=== PATIENT | male | born 1980 | race African-American/Black ===

== ENCOUNTER 2018-12-19 10:12 | Emergency (ER) | payer OTHER ==
--- NOTE | 2018-12-19 10:42 | ER Document Report ---
ED Medical Screen (RME) - General Chief Complaint: High Blood Pressure Stated Complaint: BLOOD PRESSURE ISSUE Time Seen by Provider: 12/19/18 10:36 Primary Care Provider: ARNEL ETIENNE MD [Primary Care Provider] - Follow up as needed TRAVEL OUTSIDE OF THE [place] IN LAST 30 DAYS: No - HPI Notes: 12/19/18 10:40 Patient is a 38-year-old male with a history of IV drug abuse with last use 2 to 3 days ago who presents complaining of dry cough, left-sided chest pain/tightness, palpitations, intermittent dizziness for the past 3 weeks. Patient states that he had some vomiting past yesterday and the day before but nothing today. Denies significant cardiopulmonary medical history otherwise. Denies drug allergies. Denies MILLER, fever, neck pain, URI, SOB, Abd pain, dysuria, back pain, or rash. I have treated and performed a rapid initial assessment of this patient. A comprehensive ED assessment and evaluation of the patient, analysis of test results and completion of medical decision making process will be conducted by additional ED providers. PHYSICAL EXAMINATION: GENERAL: Well-appearing, well-nourished and in no acute distress. A&Ox4. Answers questions appropriately. LUNGS: Breath sounds clear to auscultation bilaterally and equal. No wheezes rales or rhonchi. HEART: Regular rate and rhythm without murmurs, rubs, gallops. Extremities: No cyanosis, clubbing, or edema b/l. No lower extremity asymmetry. Radha negative bilaterally. NEUROLOGICAL: Normal speech, normal gait. PSYCH: Normal mood, normal affect. - Related Data Allergies/Adverse Reactions: No Known Allergies Allergy (Verified 12/19/18 10:14) Past Medical History - Past Medical History Cardiac Medical History: Reports: Hx Hypertension Pulmonary Medical History: Reports: Hx Bronchitis Psychiatric Medical History: Reports: Hx Depression Past Surgical History: Reports: Hx Herniorrhaphy, Hx Orthopedic Surgery - right hand tendon repair - Immunizations Hx Diphtheria, Pertussis, Tetanus Vaccination: No Physical Exam - Vital signs Vitals: Temp Pulse Resp BP Pulse Ox 98.4 F 106 H 18 167/104 H 97 12/19/18 10:18 12/19/18 10:18 12/19/18 10:18 12/19/18 10:18 12/19/18 10:18 Course - Vital Signs Vital signs: Temp Pulse Resp BP Pulse Ox 98.4 F 106 H 18 167/104 H 97 12/19/18 10:18 12/19/18 10:18 12/19/18 10:18 12/19/18 10:18 12/19/18 10:18 Doctor's Discharge - Discharge Referrals: ARNEL ETIENNE MD [Primary Care Provider] - Follow up as needed
[2018-12-19 11:10] LABS: ABSOLUTE LYMPHOCYTES (AUTO) 1.4 10^3/uL (0.5-4.7); ABSOLUTE NEUT (AUTO) 6.6 10^3/uL (1.7-8.2); BASOPHILS % (AUTO) 0.4 % (0-2); EOSINOPHILS % (AUTO) 0.5 % (0-6); HEMATOCRIT 45.1 % (37.9-51.0); HEMOGLOBIN 15.9 g/dL (13.5-17.0); LYMPHOCYTES % (AUTO) 15.7 % (13-45); MEAN CORPUSCULAR HEMOGLOBIN 28.6 pg (27.0-33.4); MEAN CORPUSCULAR HGB CONC 35.2 g/dL (32.0-36.0); MEAN CORPUSCULAR VOLUME 81 fl (80-97); MONOCYTES % (AUTO) 11.3 % (3-13); PLATELET COUNT 353 10^3/uL (150-450); RED BLOOD COUNT 5.56 10^6/uL (4.35-5.55); RED CELL DISTRIBUTION WIDTH 13.1 % (11.5-14.0); SEGMENTED NEUTROPHILS % (AUTO) 72.1 % (42-78); TOTAL CELLS COUNTED % (AUTO) 100 %; WHITE BLOOD COUNT 9.1 10^3/uL (4.0-10.5)
[2018-12-19 11:31] LABS: URINE AMPHETAMINES SCREEN NEGATIVE; URINE BARBITURATES SCREEN NEGATIVE; URINE BENZODIAZEPINES SCREEN NEGATIVE; URINE COCAINE SCREEN UNCONFIRMED POSITIVE; URINE MARIJUANA (THC) SCREEN UNCONFIRMED POSITIVE; URINE METHADONE SCREEN NEGATIVE; URINE PHENCYCLIDINE SCREEN NEGATIVE
[2018-12-19 11:34] LABS: ALANINE AMINOTRANSFERASE 32 U/L (21-72); ALBUMIN 4.2 g/dL (3.5-5.0); ALKALINE PHOSPHATASE 83 U/L (38-126); ANION GAP 12 (5-19); ASPARTATE AMINO TRANSFERASE 32 U/L (17-59); BILIRUBIN,DIRECT 0.3 mg/dL (0.0-0.4); BILIRUBIN,TOTAL 0.7 mg/dL (0.2-1.3); BLOOD UREA NITROGEN 17 mg/dL (7-20); CALCIUM 9.9 mg/dL (8.4-10.2); CARBON DIOXIDE 29 mmol/L (22-30); CHLORIDE 101 mmol/L (98-107); GLUCOSE 107 mg/dL (75-110); POTASSIUM 4.2 mmol/L (3.6-5.0); SODIUM 141.7 mmol/L (137-145); TOTAL PROTEIN 7.8 g/dL (6.3-8.2)
--- NOTE | 2018-12-19 11:39 | RADIOLOGY REPORT (SQ) ---
EXAM DESCRIPTION: CHEST SINGLE VIEW COMPLETED DATE/TIME: 12/19/2018 11:29 am REASON FOR STUDY: CP/cough COMPARISON: None. NUMBER OF VIEWS: One view. TECHNIQUE: Single frontal radiographic view of the chest acquired. LIMITATIONS: None. FINDINGS: LUNGS AND PLEURA: No opacities, masses or pneumothorax. No pleural effusion. MEDIASTINUM AND HILAR STRUCTURES: No masses. Contour normal. HEART AND VASCULAR STRUCTURES: Heart normal in size. Normal vasculature. BONES: No acute findings. HARDWARE: None in the chest. OTHER: No other significant finding. IMPRESSION: NO SIGNIFICANT RADIOGRAPHIC FINDING IN THE CHEST. TECHNICAL DOCUMENTATION: JOB ID: [id number] [employer]- All Rights Reserved Reading location - IP/workstation name: [email or web address]
[2018-12-19 12:06] LABS: NT PRO BNP 57 pg/mL (<125)
[2018-12-19 12:09] LABS: TROPONIN I < 0.012 ng/mL
--- NOTE | 2018-12-19 12:18 | ER Document Report ---
ED General - General Chief Complaint: High Blood Pressure Stated Complaint: BLOOD PRESSURE ISSUE Time Seen by Provider: 12/19/18 10:36 Primary Care Provider: ARNEL ETIENNE MD [Primary Care Provider] - Follow up as needed Information source: Patient Notes: 38-year-old male who was sent here from an urgent care with an elevated blood pressure. Patient states he has had 2 days of runny nose, congestion, and coughing. He has not taken any almv-lil-yalwumf medications I will increase his blood pressure. He also states that he has lost his voice. He states a mild intermittent headache. He denies any chest pain, abdominal pain, or leg swelling. He denies any fevers. One bout of vomiting without diarrhea. The vomitus had no blood or bile. Patient states he used to be on a blood pressure medication that was started when he was 33. He cannot remember the medication name. He cannot remember when he stopped taking the medication. TRAVEL OUTSIDE OF THE [place] IN LAST 30 DAYS: No - Related Data Allergies/Adverse Reactions: No Known Allergies Allergy (Verified 12/19/18 10:14) Past Medical History - General Information source: Patient - Social History Smoking Status: Never Smoker Chew tobacco use (# tins/day): No Frequency of alcohol use: Occasional Drug Abuse: Marijuana Family History: CAD Patient has suicidal ideation: No Patient has homicidal ideation: No - Past Medical History Cardiac Medical History: Reports: Hx Hypertension Pulmonary Medical History: Reports: Hx Bronchitis Renal/ Medical History: Denies: Hx Peritoneal Dialysis Psychiatric Medical History: Reports: Hx Depression Past Surgical History: Reports: Hx Herniorrhaphy, Hx Orthopedic Surgery - right hand tendon repair - Immunizations Hx Diphtheria, Pertussis, Tetanus Vaccination: No Review of Systems - Review of Systems Constitutional: denies: Fever EENT: Nose congestion. denies: Eye discharge, Nose discharge Cardiovascular: denies: Chest pain, Palpitations Respiratory: denies: Short of breath Gastrointestinal: Vomiting Genitourinary: denies: Dysuria Musculoskeletal: denies: Leg swelling Skin: Other - no hives. denies: Rash Neurological/Psychological: Other - no slurred speech -: Yes All other systems reviewed and negative Physical Exam - Vital signs Vitals: Temp Pulse Resp BP Pulse Ox 98.4 F 106 H 18 167/104 H 97 12/19/18 10:18 12/19/18 10:18 12/19/18 10:18 12/19/18 10:18 12/19/18 10:18 Notes: Reviewed vital signs and nursing note as charted by RN. CONSTITUTIONAL: Alert and oriented and responds appropriately to questions. Well-appearing; well-nourished HEAD: Normocephalic; atraumatic EYES: PERRL; Conjunctivae clear, sclerae non-icteric ENT: Normal nose; bilateral nonpurulent nasal rhinorrhea; moist mucous membranes; pharynx without lesions noted NECK: Supple without meningismus; non-tender; no cervical lymphadenopathy, no masses CARD: Regular rate and rhythm; no murmurs; symmetric distal pulses RESP: Normal chest excursion without splinting or tachypnea; breath sounds clear and equal bilaterally; no wheezes, no rhonchi, no rales ABD/GI: Normal bowel sounds; non-distended; soft, non-tender; no palpable organomegaly or masses BACK: The back appears normal and is non-tender to palpation EXT: Normal ROM in all joints; non-tender to palpation; no edema SKIN: No acute lesions noted NEURO: CN 2-12 intact; 5/5 bilateral upper and lower extremity strength with sensation intact to light touch PSYCH: The patient's mood and manner are appropriate. Grooming and personal hygiene are appropriate. Course - Re-evaluation Re-evalutation: Given the history and physical examination, the patient had a full laboratory profile including a troponin ordered in triage. Patient has had no chest pain, calf pain or leg swelling. Minimal intermittent headaches. No blurry vision. I do believe subarachnoid hemorrhage, myocardial infarction, PE, and dissection to be extremely unlikely. 12/19/18 12:16 Cocaine positive. I have had a long discussion with the patient regarding cocaine abuse. I have explained the importance of discontinuing this substance. If somebody normally presents with elevated blood pressure with cocaine in the system, I normally do not start the patient on blood pressure medications. However, given the patient's noncompliance with the blood pressure medication t hat was started when he was 33, if the work-up is unremarkable, I will most likely start the patient on a small dose of Norvasc daily with follow-up back in the urgent care clinic. 12/19/18 14:05 CT scan of the head as recorded. Still no focal neurological deficits. Labs otherwise as recorded. I will start the patient on a short course of blood pressure medications with strict return precautions and follow-up with the primary care physician. Patient understands not to take the cocaine in the future. - Vital Signs Vital signs: Temp Pulse Resp BP Pulse Ox 98.4 F 106 H 22 H 171/120 H 97 12/19/18 10:18 12/19/18 10:18 12/19/18 13:20 12/19/18 13:20 12/19/18 13:20 - Laboratory Result Diagrams: 12/19/18 11:00 12/19/18 11:00 Laboratory results interpreted by me: 12/19/18 11:00 RBC 5.56 H Discharge - Discharge Clinical Impression: Nasal congestion, Cough, Elevated blood pressure reading Headache Qualifiers: Headache type: unspecified Headache chronicity pattern: unspecified pattern I ntractability: not intractable Qualified Code(s): R51 - Headache Condition: Good Disposition: HOME, SELF-CARE Additional Instructions: Please discontinue the cocaine. Please start the blood pressure medications tomorrow as discussed. Please follow-up with the primary care provider for reassessment. Come back immediately for any worsening headache, chest pain, leg swelling, fevers, weakness or numbness, worsening cough or shortness of breath, or any other acute problems. Prescriptions: Amlodipine Besylate [Norvasc 5 mg Tablet] 5 mg PO DAILY #30 tablet Referrals: ARNEL ETIENNE MD [Primary Care Provider] - Follow up as needed
--- NOTE | 2018-12-19 13:13 | EKG REPORT ---
SEVERITY:- ABNORMAL ECG - SINUS RHYTHM CONSIDER LEFT VENTRICULAR HYPERTROPHY ST ELEV, PROBABLE NORMAL EARLY REPOL PATTERN : Confirmed by: Jose Blair MD 19-Dec-2018 13:12:37
--- NOTE | 2018-12-19 13:50 | RADIOLOGY REPORT (SQ) ---
EXAM DESCRIPTION: CT HEAD WITHOUT COMPLETED DATE/TIME: 12/19/2018 1:38 pm REASON FOR STUDY: 20; headache with elevated BP on cocaine COMPARISON: None. TECHNIQUE: Axial images acquired through the brain without intravenous contrast. Images reviewed wi th bone, brain and subdural windows. Additional sagittal and coronal reconstructions were generated. Images stored on PACS. All CT scanners at this facility use dose modulation, iterative reconstruction, and/or weight based d osing when appropriate to reduce radiation dose to as low as reasonably achievable (ALARA). [facility]: Dose Right [facility]: CareDose [facility]: Dose Right [facility]: Teradose 4D [facility]: Smart [employer] RADIATION DOSE: CT Rad equipment meets quality standard of care and radiation dose reduction techniq ues were employed. CTDIvol: 53.2 mGy. DLP: 1044 mGy-cm. mGy. LIMITATIONS: None. FINDINGS: VENTRICLES: Normal size and contour. CEREBRUM: No masses. No hemorrhage. No midline shift. No evidence for acute infarction. Normal gra y/white matter differentiation. No areas of low density in the white matter. CEREBELLUM: No masses. No hemorrhage. No alteration of density. No evidence for acute infarction. EXTRAAXIAL SPACES: No fluid collections. No masses. ORBITS AND GLOBE: No intra- or extraconal masses. Normal contour of globe without masses. CALVARIUM: No fracture. PARANASAL SINUSES: Extensive paranasal sinus disease. SOFT TISSUES: No mass or hematoma. OTHER: No other significant finding. IMPRESSION: 1. No acute intracranial pathology. No noncontrast CT findings to explain headache. 2. Paranasal sinus disease. EVIDENCE OF ACUTE STROKE: NO. COMMENT: Quality ID # [id number]: Final reports with documentation of one or more dose reduction techniques (e.g., Automated exposure control, adjustment of the mA and/or kV according to patient size, use of iterative reconstruction technique) TECHNICAL DOCUMENTATION: JOB ID: [id number] [employer]- All Rights Reserved Reading location - IP/workstation name: [email or web address]
[2018-12-19 14:32] VITALS: BP 160/116
== END 2018-12-19 14:31 | disposition home or self-care (01) ==
LOC: ER 10:12
DX: R09.81 Nasal congestion (principal); R05 Cough; I10 Essential (primary) hypertension; R51 Headache; R11.10 Vomiting, unspecified; R09.89 Other specified symptoms and signs involving the circulatory and respiratory systems
CPT/HCPCS: 36415; 70450; 71045; 80053; 80307; 83880; 84484; 85025; 93005; 93010; 99284

== ENCOUNTER 2020-07-05 23:56 | Emergency (ER) | payer OTHER ==
--- NOTE | 2020-07-06 00:16 | ER Document Report ---
ED Medical Screen (RME) - General Chief Complaint: Chest Pain Stated Complaint: CHEST PAIN Time Seen by Provider: 07/06/20 00:10 Primary Care Provider: ARNEL ETIENNE MD [Primary Care Provider] - Follow up as needed Mode of Arrival: Wheelchair Information source: Patient, Friend Notes: HPI; 39-year-old male presents emergency room complaining of dizziness with lightheadedness left-sided sharp stabbing chest pain that radiates into his left arm. States symptoms started approximately 30 to 40 minutes prior to arrival. Denies any nausea, vomiting, no diaphoresis. Denies any trauma or injury. Patient does admit to the use of methamphetamine last used 2 days ago. PE: Alert and oriented x3. Lungs: Clear to auscultation without rales, rhonchi, wheezes. Heart: Tachycardic without murmurs, rubs, gallops. I have greeted and performed a rapid initial assessment of this patient. A comprehensive ED assessment and evaluation of the patient, analysis of test re sults and completion of the medical decision making process will be conducted by additional ED providers. I have specifically instructed the patient or family members with the patient to immediately return to any nursing staff should anything change in the patient's condition or with their chief complaint. TRAVEL OUTSIDE OF THE [place] IN LAST 30 DAYS: No - Related Data Allergies/Adverse Reactions: No Known Allergies Allergy (Verified 12/19/18 10:14) Past Medical History - Past Medical History Cardiac Medical History: Reports: Hx Hypertension Pulmonary Medical History: Reports: Hx Bronchitis Renal/ Medical History: Denies: Hx Peritoneal Dialysis Psychiatric Medical History: Reports: Hx Depression Past Surgical History: Reports: Hx Herniorrhaphy, Hx Orthopedic Surgery - right hand tendon repair - Immunizations Hx Diphtheria, Pertussis, Tetanus Vaccination: No Physical Exam - Vital signs Vitals: Temp Pulse BP Pulse Ox 98.2 F 118 H 213/133 H 99 07/06/20 00:04 07/06/20 00:04 07/06/20 00:04 07/06/20 00:04 Course - Vital Signs Vital signs: Temp Pulse Resp BP Pulse Ox 98.2 F 118 H 213/133 H 99 07/06/20 00:04 07/06/20 00:04 07/06/20 00:04 07/06/20 00:04 Doctor's Discharge - Discharge Referrals: ARNEL ETIENNE MD [Primary Care Provider] - Follow up as needed
[2020-07-06 01:20] LABS: ABSOLUTE EOSINOPHILS # (AUTO) 0.1 10^3/uL (0.0-0.6); ABSOLUTE LYMPHOCYTES (AUTO) 1.5 10^3/uL (0.5-4.7); ABSOLUTE MONOCYTES (AUTO) 0.6 10^3/uL (0.1-1.4); ABSOLUTE NEUT (AUTO) 4.1 10^3/uL (1.7-8.2); BASOPHILS % (AUTO) 0.8 % (0-2); HEMATOCRIT 42.7 % (37.9-51.0); HEMOGLOBIN 15.1 g/dL (13.5-17.0); LYMPHOCYTES % (AUTO) 23.9 % (13-45); MEAN CORPUSCULAR HEMOGLOBIN 28.9 pg (27.0-33.4); MEAN CORPUSCULAR HGB CONC 35.4 g/dL (32.0-36.0); MEAN CORPUSCULAR VOLUME 82 fl (80-97); MONOCYTES % (AUTO) 10.1 % (3-13); PLATELET COUNT 266 10^3/uL (150-450); RED BLOOD COUNT 5.24 10^6/uL (4.35-5.55); RED CELL DISTRIBUTION WIDTH 13.5 % (11.5-14.0); SEGMENTED NEUTROPHILS % (AUTO) 64.2 % (42-78); TOTAL CELLS COUNTED % (AUTO) 100 %; WHITE BLOOD COUNT 6.4 10^3/uL (4.0-10.5)
--- NOTE | 2020-07-06 01:26 | RADIOLOGY REPORT (SQ) ---
EXAM DESCRIPTION: X-ray single view chest. CLINICAL HISTORY: 39 years Male, chest pain COMPARISON: 12/19/2018 TECHNIQUE: Single portable x-ray view of the chest performed on 07/06/2020 at 12:55 AM FINDINGS: The lungs are well expanded and are clear. There is no evidence of a pneumothorax. The cardiac silhouette is normal in size and configuration. The mediastinal contours are normal. No acute osseous abnormality is identified. No acute soft tissue abnormalities are seen. Lines and tubes: None. IMPRESSION: No evidence of acute intrathoracic disease.
[2020-07-06 01:36] LABS: ALBUMIN 4.2 g/dL (3.5-5.0); ALKALINE PHOSPHATASE 92 U/L (38-126); ANION GAP 8 (5-19); ASPARTATE AMINO TRANSFERASE 67 U/L (17-59); BILIRUBIN,DIRECT 0.1 mg/dL (0.0-0.4); BILIRUBIN,TOTAL 0.9 mg/dL (0.2-1.3); BLOOD UREA NITROGEN 23 mg/dL (7-20); CALCIUM 9.6 mg/dL (8.4-10.2); CARBON DIOXIDE 27 mmol/L (22-30); CHLORIDE 104 mmol/L (98-107); CREATINE KINASE 162 U/L (55-170); GLUCOSE 114 mg/dL (75-110); POTASSIUM 4.1 mmol/L (3.6-5.0); TOTAL PROTEIN 7.5 g/dL (6.3-8.2)
[2020-07-06 01:43] LABS: CREATINE KINASE MB 1.77 ng/mL (<4.55)
[2020-07-06 01:47] LABS: TROPONIN I < 0.012 ng/mL
[2020-07-06 01:49] LABS: URINE BARBITURATES SCREEN NEGATIVE; URINE BENZODIAZEPINES SCREEN NEGATIVE; URINE COCAINE SCREEN NEGATIVE; URINE METHADONE SCREEN NEGATIVE; URINE PHENCYCLIDINE SCREEN NEGATIVE
[2020-07-06 01:53] LABS: URINE MARIJUANA (THC) SCREEN UNCONFIRMED POSITIVE
[2020-07-06 04:18] VITALS: BP 117/112
--- NOTE | 2020-07-06 22:08 | EKG REPORT ---
SEVERITY:- ABNORMAL ECG - SINUS TACHYCARDIA PROBABLE LEFT ATRIAL ABNORMALITY LEFT VENTRICULAR HYPERTROPHY ST ELEV, PROBABLE NORMAL EARLY REPOL PATTERN : Confirmed by: Jose Blair MD 06-Jul-2020 22:08:01
== END 2020-07-06 07:40 | disposition left against medical advice (07) ==
LOC: ER 23:56
DX: R07.9 Chest pain, unspecified (principal); R42 Dizziness and giddiness; I10 Essential (primary) hypertension; Z53.20 Procedure and treatment not carried out because of patient's decision for unspecified reasons
CPT/HCPCS: 36415; 71045; 80053; 80307; 82550; 82553; 84484; 85025; 93005; 93010; 99281